=== PATIENT | male | born 1980 | race African-American/Black ===

== ENCOUNTER 2017-04-13 08:18 | Emergency (ER) | payer SELFPAY ==
[~2017-04-13] VITALS: Ht 175.3 cm; Wt 81.0 kg
[2017-04-13 10:59] VITALS: BP 114/62
== END 2017-04-13 11:00 | disposition home or self-care (01) ==
LOC: ER 09:40
DX: S50.01XA Contusion of right elbow, initial encounter (principal); M79.89 Other specified soft tissue disorders; W19.XXXA Unspecified fall, initial encounter; Y93.79 Activity, other specified sports and athletics; Y92.89 Other specified places as the place of occurrence of the external cause; Y99.8 Other external cause status
CPT/HCPCS: 73080; 99284

== ENCOUNTER 2017-06-10 16:10 | Emergency (ER) | payer SELFPAY ==
[~2017-06-10] VITALS: Ht 175.3 cm; Wt 77.0 kg
[2017-06-10] MEDS ORDERED: KETOROLAC 60MG/2ML VIAL IM ONE (16:45)
[2017-06-10 17:31] VITALS: BP 111/67
== END 2017-06-10 18:03 | disposition home or self-care (01) ==
LOC: ER 16:21
DX: S40.012A Contusion of left shoulder, initial encounter (principal); W51.XXXA Accidental striking against or bumped into by another person, initial encounter; Y93.61 Activity, american tackle football; Y92.89 Other specified places as the place of occurrence of the external cause
CPT/HCPCS: 73030; 96372; 99284; J1885; A4565

== ENCOUNTER 2017-10-10 14:42 | Emergency (ER) | payer SELFPAY ==
[~2017-10-10] VITALS: Ht 175.3 cm; Wt 79.0 kg
[2017-10-10 15:32] VITALS: BP 107/70
== END 2017-10-10 16:20 | disposition home or self-care (01) ==
LOC: ER 15:34
DX: S02.2XXA Fracture of nasal bones, initial encounter for closed fracture (principal); X58.XXXA Exposure to other specified factors, initial encounter; Y93.61 Activity, american tackle football; Y92.89 Other specified places as the place of occurrence of the external cause; Y99.8 Other external cause status
CPT/HCPCS: 99282

== ENCOUNTER 2018-04-27 09:52 | Emergency (ER) | payer SELFPAY ==
[~2018-04-27] VITALS: Ht 175.3 cm; Wt 81.0 kg
[2018-04-27] MEDS ORDERED: IBUPROFEN 800MG TABLET PO ONE (14:30)
[2018-04-27 15:04] VITALS: BP 121/70
== END 2018-04-27 15:10 | disposition home or self-care (01) ==
LOC: ER 12:33
DX: S60.222A Contusion of left hand, initial encounter (principal); W22.8XXA Striking against or struck by other objects, initial encounter; Y93.61 Activity, american tackle football; Y92.89 Other specified places as the place of occurrence of the external cause
CPT/HCPCS: 73130; 99284